=== PATIENT | male | born 1965 | race Caucasian/White ===

== ENCOUNTER 2016-05-27 09:45 | Day surgery (SDC) | payer OTHER ==
--- NOTE | 2016-05-17 10:47 | HP ---
DATE OF ADMISSION: DATE OF DICTATION: 05/10/2016 Patient to be admitted to the hospital in the near future in the [facility], date to be determined. HISTORY: This is a 50-year-old man admitted to the hospital for laparoscopic removal of his gallbladder as management of chronic cholecystitis and cholelithiasis with recent biliary colic. Patient recently developed a severe bout of abdominal pain with radiation of his pain to his back. This was associated with nausea and vomiting. He was seen and evaluated in the emergency room, where initial CAT scan was essentially unremarkable. However, a subsequent ultrasound of the abdomen completed on March 07, 2016, demonstrated cholecystitis with a thickened gallbladder wall. Biliary ductal structures were normal caliber. At this junction, patient admitted electively for laparoscopic cholecystectomy. Patient states that he has no fatty food intolerance by history; however, prior to his recent bout of abdominal pain, he was having zuniga and eggs. There has been no unintentional weight loss. There is no history of jaundice. His grandmother did require a cholecystectomy for biliary disease. The patient's past medical history is essentially nil except for reflux and arthritis. No known history of hypertension; heart disease; diabetes; respiratory, renal or hepatic insufficiency. PAST SURGICAL HISTORY: Nil. ALLERGIES: None known. REGULAR MEDICATIONS: Acyclovir. SOCIAL HISTORY: Negative tobacco. Positive alcohol, 6 to 8 drinks weekly. FAMILY HISTORY: Father, history of hypertension. Mother, history of hypertension, thyroid disorder. Siblings, 1 with hypertension. REVIEW OF SYSTEMS: Otherwise nil. PHYSICAL EXAMINATION: Abdomen soft, nontender, with no palpable findings. IMPRESSION: Chronic cholecystitis/cholelithiasis. Recent biliary colic. PLAN: Laparoscopic cholecystectomy. Indications, alternatives, possible complications reviewed. Consent obtained. Patient to be seen preoperatively by his PMD. Please refer to those notes for those medical details. Barbra MARIE/[id number] cc: Aj Torres DO
[2016-05-20 15:04] VITALS: BMI 22.4
[~2016-05-27 09:45] MED LIST: LACTATED RINGERS SOLUTION 1,000 ML IV SCH; ONDANSETRON 4 MG/2 ML VIAL IVPUSH PRN; PROMETHAZINE HCL 25 MG/1 ML VIAL IVPUSH PRN; oxyCODONE HCL 5 MG TABLET PO PRN
[2016-05-27] MEDS ORDERED: oxyCODONE HCL 5 MG TABLET PO PRN (10:09)
[2016-05-27] MEDS ORDERED: ACETAMINOPHEN 325 MG TABLET (FP) PO PRN (10:09)
[2016-05-27] MEDS ORDERED: morphine CARPU-JECT 4 MG/1 ML DISP.SYRIN IVPB PRN (10:09)
[2016-05-27] MEDS ORDERED: D5-1/2NS+20 MEQ KCL - 1,000 ML IV SCH (10:15)
[2016-05-27] MEDS ORDERED: ONDANSETRON 4 MG/2 ML VIAL IVPB PRN (10:29)
[2016-05-27] MEDS ORDERED: ACETAMINOPHEN INJECTION 100 ML IVPB ONE (11:23)
--- NOTE | 2016-05-27 17:38 | OP ---
DATE OF OPERATION: 05/27/2016 PREOPERATIVE DIAGNOSIS: Current cholecystitis/cholelithiasis. POSTOPERATIVE DIAGNOSIS: Current cholecystitis/cholelithiasis. PROCEDURE: Laparoscopic cholecystectomy. OPERATING SURGEON: Lev Pak MD BENEFITS CLERK: Bartolo Flood MD ANESTHESIA: Demetrio Savage MD (general) HISTORY: This is a 50-year-old man admitted to the hospital for laparoscopic removal of his gallbladder as management of symptomatic cholelithiasis. Indications, alternatives, and possible complications reviewed. Consent obtained. DESCRIPTION OF PROCEDURE: With the patient in the supine position and after general anesthesia, the abdomen was prepped and draped in sterile fashion using chlorhexidine. A small infraumbilical incision was made through which a Veress needle was placed into the abdominal cavity. The abdominal cavity was inflated to an adequate pressure and volume using CO2 gas. The Veress needle was removed. An 11-mm trocar port was placed through the umbilical wound. The camera lens was passed through this port and the intra-abdominal cavity visualized. Under direct vision, two 5-mm right anterolateral ports were placed through which clamps were passed to maintain traction on the gallbladder and aid in the dissection. An 11-mm port was placed in the epigastrium through which the operating instruments were passed. Limited exploration of the abdomen revealed no significant findings other than multiple adhesions about a contracted gallbladder. These were taken down under direct vision exposing the entire thick wall gallbladder and hepatoduodenal ligament. The peritoneum and the hepatoduodenal ligament was incised. The cystic duct was identified. The bile duct junction was noted. The cystic duct was clipped and divided. The adjacent artery was managed similarly as was a posterior branch of the artery. The gallbladder was then removed from the gallbladder bed lysing its attachment using the electrocautery. Ultimately the gallbladder was freed and placed in a retrieval bag. The right upper quadrant was irrigated. The irrigant retrieved. Adequate hemostasis was ensured. All ports were removed under direct vision and no bleeding identified. The gallbladder was then passed in its retrieval bag and delivered through the umbilical port without difficulty. The fascia at the umbilicus was approximated using interrupted 0 Vicryl sutures. All skin wounds were closed using subcuticular 4-0 Biosyn sutures. INSTRUMENT COUNT: Correct. ESTIMATED BLOOD LOSS: Minimal. SPECIMEN: Gallbladder. DRAINS: None. The patient tolerated the procedure and the procedure was terminated. Barbra [id number] MTDD
[2016-05-27] MEDS ORDERED: oxyCODONE HCL 5 MG TABLET ONE (18:06)
[2016-05-28 06:12] VITALS: BP 97/56; PULSE 63; TEMP 98.4
[2016-05-28] MEDS ORDERED: ENOXAPARIN NA (PORCINE) 40 MG/0.4 ML DISP.SYRIN SQ SCH (10:00)
[2016-05-28] MEDS ORDERED: PANTOPRAZOLE SODIUM 100 ML IVPB SCH (10:00)
--- NOTE | 2016-05-31 13:18 | PATH ---
Surgical Pathology Report Patient Name: ADINA ESTRELLA [facility]. Rec. #: [id number] /Age/Gender: 1965 (Age: 50) / M Account: [id number] Location: [facility] AMBUL[facility] Taken: 05/27/2016 Received: 05/27/2016 Reported: 05/31/2016 Physicians: Lev Pak M.D. Specimen(s) Received GALLBLADDER Clinical History Calculus of gallbladder Final Diagnosis GALLBLADDER, CHOLECYSTECTOMY: CHRONIC CHOLECYSTITIS AND CHOLELITHIASIS. Electronically Signed Nikos Guidry M.D. Gross Description Received in formalin, labeled "gallbladder," is a 5.2 x 1.8 x 1.8 cm. gallbladder with a 0.2 cm. in length portion of cystic duct attached. The outer surface is perez-khanna and varies from smooth to shaggy. The lumen contains perez, sludgelike bile as well as abundant yellow, irregular to fragmented choleliths ranging from 0.1-0.3 cm in greatest dimension. The gallbladder lumen is compartmentalized, divided by fibrous septae. The mucosa is green and focally eroded. The wall of the gallbladder ranges from 0.1-0.8 cm. in thickness. Water Quality Tester sections are submitted in one cassette. 05/30/201605/30/2016
== END 2016-05-28 11:03 | disposition home or self-care (01) ==
LOC: FASU 09:45 → FM/S 20:17 → FASU 05-28 11:03
PROVIDERS: ATTEND Surgery
PROC: 0FT44ZZ Resection of Gallbladder, Percutaneous Endoscopic Approach (ICD-10-PCS; principal; 2016-05-27 11:36)
DX: K80.10 Calculus of gallbladder with chronic cholecystitis without obstruction (principal)
CPT/HCPCS: 88304-TC; 94010; 94760

== ENCOUNTER 2016-11-13 23:17 | Emergency (ER) | payer OTHER ==
[2016-11-13 23:25] VITALS: BP 124/76; PULSE 72; TEMP 97.5; BMI 22.4
[2016-11-14] MEDS ORDERED: TETRACAINE 0.5% HCL 0.6ML DROPPER.BOTTLE OD ONE (01:57)
[2016-11-14] MEDS ORDERED: TETRACAINE 0.5% OPHTH SOLN 2 ML BOTTLE ONE (01:58)
[2016-11-14] MEDS ORDERED: FLUORESCEIN NA 1 EA STRIP ONE (02:05)
[2016-11-14] MEDS ORDERED: CIPROFLOXACIN 0.3% EYE DROPS 5 ML BOTTLE OD ONE (02:14)
[2016-11-14] MEDS ORDERED: CIPROFLOXACIN HCL 0.3% OPHTH 2.5ML BOTTLE ONE (02:15)
--- NOTE | 2016-11-14 02:20 | PDOC ---
History of Present Illness - General Chief Complaint: Eye Problem Stated Complaint: Eye Problem Time Seen by Provider: 11/14/16 01:39 History Source: Patient Exam Limitations: No Limitations - History of Present Illness Initial Comments: 11/14/16 02:15 51yo Male patient with no significant past medical history presents to ED c/o right eye pain. Patient states he believes his contact is stuck in his eye and he is having trouble removing it. Patient states he has been trying to remove it for the past 1hr. He denies trauma, injury or any other complaints. Patient uses contact for corrective purposes. He denies any other complaints at this time. Timing/Duration: 1 hour Severity: moderate Modifying Factors: worse with: cold therapy, eating, immobilization, medication , movement, rest, other Associated Symptoms: denies: denies symptoms, chest pain, cough, diaphoresis, fever/chills, headaches, loss of appetite, malaise, nausea/vomiting, rash, seizure, shortness of breath, syncope, weakness, other Past History - Travel Traveled outside of the country in the last 30 days: No Close contact w/someone who was outside of country & ill: No - Past Medical History Allergies/Adverse Reactions: Allergies Allergy/AdvReac Type Severity Reaction Status Date / Time No Known Allergies Allergy Verified 11/13/16 23:24 Home Medications: Ambulatory Orders Valacyclovir HCl [Valtrex -] 500 mg PO ASDIR 05/20/16 Anemia: No Asthma: No Cancer: No Cardiac Disorders: No CVA: No COPD: No CHF: No Dementia: No Diabetes: No GI Disorders: Yes (H/O STOMACH ULCERS X2 IN PAST 8 MOS) Disorders: No HTN: No Hypercholesterolemia: No Liver Disease: No Seizures: No Thyroid Disease: No - Psycho/Social/Smoking Cessation Hx Anxiety: No Suicidal Ideation: No Smoking History: Never smoked Have you smoked in the past 12 months: No Hx Alcohol Use: No Drug/Substance Use Hx: No Substance Use Type: None Hx Substance Use Treatment: No Review of Systems - Review of Systems Able to Perform ROS?: Yes Is the patient limited Chinese proficient: No HEENTM: Yes: Eye Pain, Tearing. No: Blurred Vision, Double Vision, Cataracts All Other Systems: Reviewed and Negative *Physical Exam - Vital Signs Last Vital Signs Temp Pulse Resp BP Pulse Ox 97.5 F L 72 18 124/76 99 11/13/16 23:22 11/13/16 23:22 11/13/16 23:22 11/13/16 23:22 11/13/16 23:22 - Physical Exam General Appearance: Yes: Nourished, Appropriately Dressed, Mild Distress. No: Apparent Distress, Moderate Distress, Severe Distress HEENT: positive: EOMI, GIAN, Normal Voice, Symmetrical, TMs Normal, Pharynx Normal. negative: Normal ENT Inspection (Scleral erythema), Scleral Icterus (R) , Scleral Icterus (L), Pharyngeal Erythema, Tonsillar Exudate, Tonsillar Erythema, TM Bulging, TM Dull, TM Erythema Neck: positive: Trachea midline, Supple. negative: Stridor, Lymphadenopathy (R) , Lymphadenopathy (L) Respiratory/Chest: positive: Lungs Clear, Normal Breath Sounds. negative: Chest Tender, Respiratory Distress, Accessory Muscle Use, Labored Respiration, Rapid RR Cardiovascular: positive: Regular Rhythm, Regular Rate Musculoskeletal: positive: Normal Inspection. negative: CVA Tenderness Extremity: positive: Normal Capillary Refill, Normal Inspection, Normal Range of Motion. negative: Pedal Edema, Swelling, Calf Tenderness, Erythema, Inflammation Integumentary: positive: Normal Color, Dry, Warm. negative: Erythema, Rash, Swelling Neurologic: positive: phys ther II-XII NML intact, Fully Oriented, Alert, Normal Mood/ Affect, Normal Response, Motor Strength 5/5 ED Treatment Course - Medications Given in the ED: ED Medications Discontinued Medications Generic Name Dose Route Start Last Admin Trade Name Freq PRN Reason Stop Dose Admin Tetracaine HCl 1 drop 11/14/16 01:57 11/14/16 02:00 Tetravisc 0.5% Eye Drops - OD 11/14/16 01:58 1 drop ONCE ONE Administration Medical Decision Making - Medical Decision Making 11/14/16 02:26 Assisted in evaluation of eye pain by Dr. Curiel and Dr. Ayala. We did not see any foreign body, contact, or abrasion to right eye. It was determined that patient may have already removed contact, or contact has traveled behind globe, or patient is experiencing foreign body sensation. Patient to follow up with opthalmology. *DC/Admit/Observation/Transfer Diagnosis at time of Disposition: Pain, eye, right - Discharge Dispostion Disposition: HOME Condition at time of disposition: Stable Admit: No - Referrals Referrals: STAFF,NOT ON [Primary Care Provider] - Ivania Wiseman MD [Staff Physician] - - Patient Instructions Printed Discharge Instructions: DI for Eye Pain Additional Instructions: Follow up with your sfdc developer or Dr. Milligan (ophthalmology) within 2 days for further evaluation. Administer eye drops as 2 drops every 4 hours while awake x 2 days, then 1 drop every 4 hours x 3 days. Return if any concerns for further evaluation. Print Language: GREEK
== END 2016-11-14 05:42 | disposition home or self-care (01) ==
LOC: JER 23:17
DX: H57.11 Ocular pain, right eye (principal)
CPT/HCPCS: 99281-25

== ENCOUNTER 2023-01-31 05:26 | Day surgery (SDC) | payer OTHER ==
[2023-01-25 10:55] VITALS: BMI 23.8
[2023-01-31 10:39] VITALS: TEMP 98.2
[2023-01-31 11:29] VITALS: BP 119/75; PULSE 62; RESP 18
== END 2023-01-31 11:35 | disposition home or self-care (01) ==
LOC: JASU-ENDO 05:26
PROVIDERS: ATTEND Internal Medicine Gastroenterology
PROC: 0DB98ZX Excision of Duodenum, Via Natural or Artificial Opening Endoscopic, Diagnostic (ICD-10-PCS; 2023-01-31)
PROC: 0DB78ZX Excision of Stomach, Pylorus, Via Natural or Artificial Opening Endoscopic, Diagnostic (ICD-10-PCS; 2023-01-31)
PROC: 0DB68ZX Excision of Stomach, Via Natural or Artificial Opening Endoscopic, Diagnostic (ICD-10-PCS; 2023-01-31)
PROC: 0DJ08ZZ Inspection of Upper Intestinal Tract, Via Natural or Artificial Opening Endoscopic (ICD-10-PCS; 2023-01-31)
PROC: 0DJD8ZZ Inspection of Lower Intestinal Tract, Via Natural or Artificial Opening Endoscopic (ICD-10-PCS; principal; 2023-01-31 10:00)
DX: Z12.11 Encounter for screening for malignant neoplasm of colon (principal); K64.4 Residual hemorrhoidal skin tags; K64.8 Other hemorrhoids; K31.7 Polyp of stomach and duodenum; K29.50 Unspecified chronic gastritis without bleeding; Z86.010 Personal history of colon polyps; Z83.719 Family history of colon polyps, unspecified